=== PATIENT | female | born 1985 | race Caucasian/White ===

== ENCOUNTER 2018-10-03 18:20 | Emergency (ER) | payer SELFPAY ==
[~2018-10-03] VITALS: Ht 175.3 cm; Wt 108.9 kg
[2018-10-03 18:27] VITALS: BP 117/89
--- NOTE | 2018-10-03 18:31 | NUR ---
AMBULATED TO ER LOBBY TO WAIT FOR RIDE
--- NOTE | 2018-10-03 18:32 | NUR ---
[id number]---PATIENT LEFT WITHOUT BEING SEEN BY ER PROVIDER. NO FURTHER CARE PROVIDED FOR PATIENT.
--- NOTE | 2018-10-03 18:32 | NUR ---
FULL CLEAR SPEECH, AMBULATORY WITH STEADY GAIT
== END 2018-10-03 18:32 | disposition left against medical advice (07) ==
LOC: MED 18:20
DX: R53.83 Other fatigue (principal); Z53.21 Procedure and treatment not carried out due to patient leaving prior to being seen by health care provider